=== PATIENT | male | born 1980 | race Caucasian/White ===

== ENCOUNTER 2021-09-24 14:14 | Observation (INO) ==
[2021-09-24] MEDS ORDERED: 0.9 % Sodium Chloride 1,000 ML IVC ONE (14:29)
[2021-09-24] MEDS ORDERED: Ondansetron 4 MG/2 ML VIAL IVP ONE (14:29)
[2021-09-24] MEDS ORDERED: *HR* HYDROmorphone (PF) 1 MG/ML SYRINGE IVP ONE (14:29)
[2021-09-24] MEDS ORDERED: Piperacillin/Tazobactam 3.375 GM in 0.9 % Sodium Chloride Mini Bag 100 ML IVPB ONE (14:59)
[2021-09-24 15:16] LABS: Basophils # 0.1 K/mcL (0.0-0.2); Basophils % 0.3 %; Eosinophils # 0.3 K/mcL (0.0-0.6); Eosinophils % 1.3 %; Hemoglobin 16.4 g/dL (12.9-16.9); Immature Granulocytes % 0.8 % (0-4); Lymphocytes # 3.5 K/mcL (0.6-4.6); Lymphocytes % 16.9 %; Mean Corpuscular HGB Conc 34.2 g/dL (31.6-35.5); Mean Corpuscular Hemoglobin 30.5 pg (28.0-33.3); Mean Corpuscular Volume 89.4 fL (83.0-100.0); Mean Platelet Volume 8.7 fL (9.4-12.4); Monocytes # 2.1 K/mcL (0.0-1.3); Monocytes % 10.1 %; Neutrophils # 14.7 K/mcL (1.6-8.9); Platelet Count 379 K/mcL (140-400); Red Blood Count 5.37 M/mcL (4.19-5.50); Red Cell Distribution Width 12.9 % (11.5-14.5); Segmented Neutrophils % 70.6 %; White Blood Count 20.8 K/mcL (4.3-11.1)
[2021-09-24 15:35] LABS: Alanine Aminotransferase 39 Units/L (7-52); Albumin 4.1 g/dL (3.5-5.7); Alkaline Phosphatase 89 Units/L (34-104); Aspartate Amino Transferase 14 Units/L (13-39); BUN/Creatinine Ratio 17 (6-26); Bilirubin,Direct 0.1 mg/dL (0.0-0.2); Bilirubin,Total 1.1 mg/dL (0.3-1.0); Blood Urea Nitrogen 14 mg/dL (6-20); Calcium 9.4 mg/dL (8.6-10.3); Carbon Dioxide 23 mEq/L (23-29); Chloride 102 mEq/L (98-107); Glucose 100 mg/dL (70-105); Lipase 15 Units/L (11-82); Osmolality,Calculated 281 (280-300); Potassium 3.7 mEq/L (3.5-5.1); Sodium 135 mEq/L (136-145); Total Protein 8.1 g/dL (6.4-8.9); eGFR For African Americans > 60 (> 60); eGFR For Non-African Americans > 60 (> 60)
[2021-09-24] MEDS ORDERED: Lidocaine/EPI 1:100k 1% 30 ML VIAL ONE (16:31)
[2021-09-24] MEDS ORDERED: *HR* Propofol 200 MG/20 ML VIAL IVP ONE (16:54)
[2021-09-24] MEDS ORDERED: *HR* FentaNYL (PF) 100 MCG/2 ML VIAL ONE ×2 (16:54→17:49)
[2021-09-24] MEDS ORDERED: *HR* Rocuronium Bromide 50 MG/5 ML VIAL ONE ×2 (16:54→17:48)
[2021-09-24] MEDS ORDERED: *HR* Midazolam HCl 2 MG/2 ML VIAL ONE (16:54)
[2021-09-24] MEDS ORDERED: Lidocaine -MPF 4% 5 ML AMPUL ONE (16:54)
[2021-09-24] MEDS ORDERED: Lidocaine -MPF 2% 5 ML VIAL ONE (16:54)
[2021-09-24] MEDS ORDERED: *HR* Succinylcholine 200 MG/10 ML VIAL IVP ONE (16:54)
[2021-09-24] MEDS ORDERED: Ondansetron 4 MG/2 ML VIAL ONE (17:00)
[2021-09-24] MEDS ORDERED: Ketorolac 30 MG/ML VIAL ONE (17:26)
[2021-09-24] MEDS ORDERED: Ketamine HCL *QUVA* 50mg (1mL) SYRINGE ONE (17:27)
[2021-09-24] MEDS ORDERED: *HR* Labetalol 20 MG/4 ML SYRINGE IVP ONE (18:04)
[2021-09-24] MEDS ORDERED: Sugammadex Sodium 200 MG/2 ML VIAL IV ONE (18:32)
[2021-09-24] MEDS ORDERED: *HR* HYDROMORPHONE 2 MG/ML VIAL ONE (18:43)
[2021-09-24] MEDS ORDERED: Acetaminophen IV 1,000 MG/100 ML BAG IVPB PRN (19:40)
[2021-09-24] MEDS ORDERED: Ondansetron 4 MG/2 ML VIAL IVP PRN ×2 (19:40→20:52)
[2021-09-24] MEDS ORDERED: *HR* HYDROmorphone PF 0.5 MG/0.5 ML SYRINGE IVP PRN (19:40)
[2021-09-24] MEDS: *HR* Labetalol 20 MG/4 ML SYRINGE IVP PRN ×2 (19:40→19:54)
[2021-09-24] MEDS ORDERED: Albuterol 2.5 MG/3 ML NEBULIZER IH PRN (19:40)
[2021-09-24] MEDS ORDERED: Ibuprofen 600 MG TABLET PO PRN (20:52)
[2021-09-24] MEDS ORDERED: *HR* Promethazine 25 MG/ML VIAL IM PRN (20:52)
[2021-09-24] MEDS ORDERED: *HR* HYDROmorphone (PF) 1 MG/ML SYRINGE IVP PRN (21:07)
[2021-09-24] MEDS: *HR* OxyCODONE/APAP 5/325 TABLET PO PRN (21:38)
[2021-09-24] MEDS: 0.9 % Sodium Chloride w KCl 20 MEQ/1,000 ML MLS IVC SCH (21:38)
[2021-09-25] MEDS: *HR* OxyCODONE/APAP 5/325 TABLET PO PRN ×2 (03:04→07:32)
[2021-09-25 07:16] VITALS: BP 113/83; PULSE 79; TEMP 97.9; O2SAT 94
[2021-09-25] MEDS: 0.9 % Sodium Chloride w KCl 20 MEQ/1,000 ML MLS IVC SCH (07:33)
[2021-09-25] MEDS ORDERED: Ibuprofen 400 MG TABLET PO ONE (09:32)
== END 2021-09-25 10:55 | disposition home or self-care (01) ==
LOC: 3BNU 14:14 → EMEROOARM 14:14 → 3BNU 16:35
PROVIDERS: ADMIT Surgery; ATTEND Surgery